=== PATIENT | female | born 1995 | race Caucasian/White ===

== ENCOUNTER 2023-07-28 13:58 | Outpatient (CLI) | payer BC, SELFPAY ==
[2023-07-28 21:08] LABS: Amphetamine Screen Urine Negative (Negative); Barbiturate Screen Urine Negative (Negative); Benzodiazepines Screen Urine Negative (Negative); Cannabinoid Screen Urine Negative (Negative); Cocaine Screen Urine Negative (Negative); Methadone Screen Urine Negative (Negative); Methamphetamines Screen Urine Negative (Negative); Opiate Screen Urine Negative (Negative); Oxycodone Screen Urine Negative (Negative); Phencyclidine Screen Urine Negative (Negative); Tricyclic Antidepressant Urine Negative (Negative)
== END 2023-07-28 13:59 | disposition home or self-care (01) ==
PROVIDERS: PCP Physician Assistant; Visit Provider Physician Assistant
DX: Z02.83 Encounter for blood-alcohol and blood-drug test (principal); Z87.898 Personal history of other specified conditions
CPT/HCPCS: 80306

== ENCOUNTER 2025-01-29 09:50 | Outpatient (CLI) | payer BC, SELFPAY ==
--- NOTE | 2025-01-29 10:15 | CRLHL7_ITS ---
For Patients: As a result of the Century Cures Act, medical imaging exams and procedure reports are released immediately into your electronic medical record. You may view this report before your referring provider. If you have questions, please contact your health care provider. INDICATION: First trimester scan, establish dates. TECHNIQUE: Real-time genao-scale imaging of the pelvis was performed. FINDINGS: Sonographic imaging demonstrates a single living intrauterine gestation. The embryo demonstrates a regular cardiac rate measuring 171 beats per minute. The embryo`s crown-rump length measurement of 3.7 cm corresponds to a gestational age of 8 weeks 5 day with a sonographic due date of 09/05/2025. There is a normal-appearing yolk sac. IMPRESSION: Normal first trimester OB ultrasound exam. Gestational age calculated at 8 weeks 5 days with a sonographic due date of 09/05/2025. Dictated by Cindy Mayfield MD @ 02/01/2025 11:12:53 AM (Electronically Signed)
== END 2025-01-29 09:51 | disposition home or self-care (01) ==
LOC: US 09:50
PROVIDERS: Visit Provider Advanced Practice Midwife
DX: Z34.91 Encounter for supervision of normal pregnancy, unspecified, first trimester (principal); Z3A.08 8 weeks gestation of pregnancy
CPT/HCPCS: 76817; 87086; 87491; 87591

== ENCOUNTER 2025-02-05 09:25 | Outpatient (CLI) | payer BC, SELFPAY | END 2025-02-05 09:26 | disposition home or self-care (01) | LOC: NFLDREF 02-07 15:35 | PROVIDERS: Visit Provider Advanced Practice Midwife | DX: Z34.81 Encounter for supervision of other normal pregnancy, first trimester (principal); Z67.10 Type A blood, Rh positive | CPT/HCPCS: 82565; 82570; 83020; 83021; 84156; 84450; 84460; 84520; 85660; 86592; 86703; 86704; 86706; 86762; 86787; 86803; 86850; 86900; 86901; 87340 ==

== ENCOUNTER 2025-03-26 09:21 | Outpatient (CLI) | payer BC, SELFPAY | END 2025-03-26 09:22 | disposition home or self-care (01) | LOC: NFLDREF 09:22 | PROVIDERS: Visit Provider Advanced Practice Midwife | DX: Z34.92 Encounter for supervision of normal pregnancy, unspecified, second trimester (principal) | CPT/HCPCS: 80306 ==

== ENCOUNTER 2025-04-18 08:45 | Outpatient (CLI) | payer BC, SELFPAY | END 2025-04-18 08:46 | disposition home or self-care (01) | PROVIDERS: Visit Provider Advanced Practice Midwife | DX: Z34.82 Encounter for supervision of other normal pregnancy, second trimester (principal); Z82.79 Family history of other congenital malformations, deformations and chromosomal abnormalities; Z3A.19 19 weeks gestation of pregnancy | CPT/HCPCS: 76811 ==

== ENCOUNTER 2025-05-09 11:49 | Outpatient (CLI) | payer BC, SELFPAY | END 2025-05-09 11:50 | disposition home or self-care (01) | LOC: US 11:50 | PROVIDERS: Visit Provider Advanced Practice Midwife | DX: Z36.2 Encounter for other antenatal screening follow-up (principal); Z3A.22 22 weeks gestation of pregnancy | CPT/HCPCS: 76816 ==

== ENCOUNTER 2025-06-20 12:53 | Outpatient (CLI) | payer BC, SELFPAY | END 2025-06-20 12:54 | disposition home or self-care (01) | LOC: US 12:53 | PROVIDERS: Visit Provider Advanced Practice Midwife | DX: Z87.59 Personal history of other complications of pregnancy, childbirth and the puerperium (principal); Z3A.28 28 weeks gestation of pregnancy | CPT/HCPCS: 76816 ==

== ENCOUNTER 2025-06-22 10:30 | Outpatient (CLI) | payer BC, SELFPAY | END 2025-06-22 10:31 | disposition home or self-care (01) | LOC: NFLDREF 06-29 06:33 | PROVIDERS: Visit Provider Advanced Practice Midwife | DX: Z34.93 Encounter for supervision of normal pregnancy, unspecified, third trimester (principal) | CPT/HCPCS: 86780 ==